=== PATIENT | female | born 1955 | race Two or more races ===

== ENCOUNTER 2020-09-26 16:31 | Outpatient (REF) | payer MEDICARE, SELFPAY ==
--- NOTE | ~2020-09-26 | US_ITS ---
EXAMINATION: US RETROPERITONEAL COMPLETE (RENAL) CLINICAL INFORMATION: Bilateral flank pain, concern for kidney stones. COMPARISON: None TECHNIQUE: Real-time imaging of the kidneys and bladder. FINDINGS: RIGHT KIDNEY: 10.0 x 5.3 x 5.4 cm (SAG x AP x TRV). The kidney is normal in size, contour, and echogenicity. Renal cortical thickness is normal. No calculi or focal parenchymal lesions. No hydronephrosis. LEFT KIDNEY: 10.6 x 4.2 x 5.9 cm (SAG x AP x TRV). The kidney is normal in size, contour, and echogenicity. Renal cortical thickness is normal. No calculi or focal parenchymal lesions. No hydronephrosis. BLADDER: Well distended and normal. Bilateral ureteral jets are demonstrated. Prevoid bladder volume is 141 mL. Postvoid bladder volume is 10.3 mL. US/US retroperitoneal comp IMPRESSION: Unremarkable renal ultrasound. Normal bilateral ureteral jets. Small postvoid residual bladder volume.
== END 2020-09-26 16:32 | disposition home or self-care (01) ==
LOC: HO.US 16:31
PROVIDERS: Visit Provider Internal Medicine
DX: R10.9 Unspecified abdominal pain (principal)
CPT/HCPCS: 76770

== ENCOUNTER 2021-06-19 14:34 | Outpatient (REF) | payer MEDICARE, SELFPAY ==
--- NOTE | ~2021-06-19 | US_ITS ---
EXAMINATION: US RETROPERITONEAL COMPLETE (RENAL) CLINICAL INFORMATION: Left flank pain x2 weeks. Concern for stones. COMPARISON: Renal ultrasound 09/26/2020. TECHNIQUE: Real-time imaging of the kidneys and bladder. FINDINGS: RIGHT KIDNEY: 10.1 x 5.0 x 5.0 cm (SAG x AP x TRV). The kidney is normal in size, contour, and echogenicity. Renal cortical thickness is normal. No calculi or focal parenchymal lesions. No hydronephrosis. LEFT KIDNEY: 9.5 x 4.6 x 4.7 cm (SAG x AP x TRV). The kidney is normal in size, contour, and echogenicity. Renal cortical thickness is normal. No calculi or focal parenchymal lesions. No hydronephrosis. BLADDER: Well distended and normal. Right ureteral jet is demonstrated; left is not. Prevoid bladder volume is 160.6 mL. Postvoid bladder volume is 33.2 mL. US/US retroperitoneal comp IMPRESSION: Unremarkable renal and bladder ultrasound.
== END 2021-06-19 14:35 | disposition home or self-care (01) ==
LOC: HO.US 14:34
PROVIDERS: Visit Provider Nurse Practitioner Primary Care
DX: R07.81 Pleurodynia (principal); R10.9 Unspecified abdominal pain
CPT/HCPCS: 76770

== ENCOUNTER → 2022-04-30 10:22 | Outpatient (REF) | payer OTHER, SELFPAY ==
--- NOTE | 2022-04-30 10:28 | CA_ITS ---
Transthoracic Echocardiogram Patient (Last, First, Middle): Carla Encinas, Gender: Female Date of : 1955 Age: 66 Procedure Date: 04/30/2022 Procedure Type: Transthoracic Echocardiogram Location: OP Height: 157.48 cm Weight: 63.5 kg BSA: 1.64 m2 Heart Rate: bpm BP: 120 / 54 mmHg Hog Trader: TO Referring MD: Neda Núñez MD Applications Programmer: Lucius Rodríguez MD Symptoms: NONRHEUMATIC AORTIC VALVE INSUFFICIENCY Study Quality: Technically Difficult/Contrast ECG Rhythm: Sinus Conclusions: - 1. Normal LV systolic function with grade 2 diastolic dysfunction 2. Mild aortic regurgitation 3. Normal RV systolic pressure 4. No gross pericardial effusion Findings Procedure Information Contrast agent, definity, is being given per protocol without apparent complications. Left Ventricle Normal left ventricular size, thickness, and systolic function. The visually estimated ejection fraction is between 65-70%. Spectral Doppler is indicative of a pseudonormal filling pattern. Elevated filling pressures. E/E prime ratio is >15, consistent with elevated filling pressures. Evidence suggests grade II (moderate) diastolic dysfunction. Right Ventricle Normal right ventricular cavity size and systolic function. Atria The left atrium is likely dilated. Interatrial shunt cannot be excluded. The right atrium is normal in size. Aortic Valve The aortic valve structure and function is likely normal. There is mild calcification of the aortic valve. There is no aortic valve stenosis. There is mild aortic valve regurgitation. Mitral Valve There is mild anterior and posterior mitral leaflet thickening. There is trace mitral valve regurgitation. There is no mitral valve stenosis. Pulmonic Valve The pulmonic valve was not well visualized. Tricuspid Valve Likely normal tricuspid valve structure and function. There is mild tricuspid valve regurgitation. The right ventricular systolic pressure is normal. The right ventricular systolic pressure is 30 mmHg. Normal right atrial pressure. There is no evidence of pulmonary hypertension. Great Vessels All visible segments of the aorta are normal in size. Venous The inferior vena cava is normal in size and collapses greater than 50% with inspiration. Pericardium/Pleural There is no evidence of pericardial effusion. Prior Study Comparison No prior study available for comparison. Measurements 2D Linear Measurements IVSd: 1.05 0.6-0.9/0.6-1.0 cm LVIDd: 3.82 3.9-5.3/4.2-5.9 cm LVIDd Index: 2.33 2.4-3.2/2.2-3.1 cm/m2 LVIDs: 2.53 2.0-3.6 cm LVPWd: 0.73 0.7-1.1 cm LA Diam: 3.70 2.7-3.8/3.0-4.0 cm LAIDs Index: 2.26 1.5-2.3 cm/m2 LV Mass: 124.77 67-162/88-224 g LV Mass Index: 76.08 43-95/49-115 g/m2 LVOT Diam: 2.00 3.0+(-)1.3 cm 2D Systolic Function EF 4C: 66.40 >55% EF 2C: 62.00 >55% EF BiP: 66.00 >55% Mitral Valve MV Pk E: 0.93 MV PK A: 0.64 MV Decel Time: 299.00 E/A: 1.40 E'Lateral: 5.55 E'Medial: 3.48 E/E' Med: 26.70 E/E' Lat: 16.80 PHT: 88.00 MVA PHT: 2.50 Decel Cochran: 3.11 Aortic Valve AoV Pk Juan: 1.09 AoV Mn Juan: 0.72 AoV VTI: 0.27 AoV Pk Grad: 5.00 Aov Mn Grad: 2.00 WINNIE Cont.VTI: 2.66 AI Pk Juan: 4.37 AI Cochran: 2.48 LVOT LVOT Pk Juan: 0.89 LVOT Mn Juan: 0.61 LVOT VTI: 0.23 LVOT Pk Grad: 3.00 LVOT Mn Grad: 2.00 LVOT Diam: 2.00 LVOT Area: 3.14 Diastolic Function MV Pk E: 0.93 MV Pk A: 0.64 E/A: 1.40 E'Medial: 3.48 E/E' Med: 26.70 E' Laterial: 5.55 E/E' Lat: 16.80 Right Ventricle TAPSE (mm): 18.30 TVS' Juan: 8.92 Tricuspid Valve TR Pk Juan: 2.59 TR Pk Grad: 27.00 RA Press: 3.00 RVSP: 30.00 Great Vessels Aorta Sinus of Valsalva: 2.83 2.0-3.[address] Ridge: 2.20 1.7-3.4 cm Ao Asc: 3.00 2.1-3.4 cm Updated in Other Vendor System with Status of Final Lucius Rodríguez MD electronically signed on 04/30/2022 3:58:30 PM with status of Final
== END ==
LOC: HO.CARD 10:22
PROVIDERS: PCP Internal Medicine; Visit Provider Internal Medicine
DX: I35.1 Nonrheumatic aortic (valve) insufficiency (principal)
CPT/HCPCS: 93306; Q9957

== ENCOUNTER 2023-05-11 11:14 | Outpatient (REF) | payer OTHER, SELFPAY ==
--- NOTE | ~2023-05-11 | XR_ITS ---
EXAMINATION: XR KNEE, RIGHT CLINICAL INFORMATION: Knee pain after trauma 2 weeks ago COMPARISON: None available. TECHNIQUE: Four views of the right knee. FINDINGS: Medial soft tissue swelling. Mild medial knee joint narrowing and chondrocalcinosis. Small quadriceps enthesopathy. No fracture, dislocation or joint effusion. Vascular calcifications. Medial surgical clips. XR/XR knee RT 4V IMPRESSION: No acute bony pathology. Degenerative type changes.
[2023-05-11 13:28] LABS: MANUAL DIFF FLAG NO
[2023-05-11 13:41] LABS: Basophils Absolute Auto 0.1 X10*3/uL (0.0-0.2); Eosinophils Absolute Auto 0.6 X10*3/uL (0.0-0.4); Eosinophils Percent Auto 5.1 % (0-4); Hematocrit 34.1 % (37.0-47.0); Hemoglobin 10.7 g/dl (12.0-16.0); Imm Gran Abs Auto 0.04 X10*3/uL (0.00-0.03); Imm Gran Pct Auto 0.3 % (0.0-0.4); Lymphocytes Absolute Auto 2.2 X10*3/uL (1.2-4.9); Lymphocytes Percent Auto 17.8 % (20-40); Mean Corpuscular HGB Conc 31.4 g/dl (31.0-35.0); Mean Corpuscular Hemoglobin 26.1 pg (27.0-33.0); Mean Corpuscular Volume 83.2 fL (80.0-98.0); Monocytes Absolute Auto 0.9 X10*3/uL (0.1-1.2); Monocytes Percent Auto 6.9 % (2-11); Neutrophils Absolute Auto 8.6 x10*3/uL (2.0-8.3); Neutrophils Percent Auto 68.9 % (45-73); Platelet Count 365 X10*3/uL (160-400); White Blood Count 12.4 X10*3/uL (4.8-10.8)
[2023-05-11 14:11] LABS: Alanine Aminotransferase 23 U/L (0-31); Albumin Level 4.2 g/dL (3.5-5.0); Alkaline Phosphatase 69 U/L (39-117); Anion Gap 14 (12-20); Aspartate Amino Transferase 23 U/L (5-31); Bilirubin Total 0.4 mg/dL (0.0-1.0); Blood Urea Nitrogen 15 mg/dL (9-16); Calcium 10.5 mg/dL (8.4-10.2); Carbon Dioxide 27 mmol/L (22-29); Chloride 105 mmol/L (96-108); Estimated Glomerular Filt Rate > 60; Glucose Random 140 mg/dL (60-115); Iron 38 mcg/dL (30-160); Percent Iron Saturation 13 % (15-50); Potassium 4.2 mmol/L (3.3-5.1); Sodium 142 mmol/L (135-145); Total Iron Binding Capacity 297 mcg/dL (228-428); Total Protein 7.9 g/dL (6.5-8.0); Unsaturated Iron Binding 259 ug/dL
[2023-05-11 14:15] LABS: Estimated Average Glucose 166 mg/dL; Hemoglobin A1c % 7.4 % (<6.0)
[2023-05-11 14:30] LABS: Ferritin 24 ng/mL (10-250)
[2023-05-11 15:53] LABS: Adenovirus F 40/41 Not Detected (Not Detect.); Astrovirus Not Detected (Not Detect.); Campylobacter Not Detected (Not Detect.); Cryptosporidium Not Detected (Not Detect.); Cyclospora cayetanensis Not Detected (Not Detect.); E. coli EAEC Not Detected (Not Detect.); E. coli EPEC Not Detected (Not Detect.); E. coli ETEC Not Detected (Not Detect.); E. coli STEC Not Detected (Not Detect.); Entamoeba histolytica Not Detected (Not Detect.); Giardia lamblia Not Detected (Not Detect.); Norovirus GI/GII Not Detected (Not Detect.); Plesiomonas shigelloides Not Detected (Not Detect.); Rotavirus A Not Detected (Not Detect.); Salmonella Not Detected (Not Detect.); Sapovirus Not Detected (Not Detect.); Shigella sp./EIEC Not Detected (Not Detect.); Vibrio Not Detected (Not Detect.); Vibrio Cholerae Not Detected (Not Detect.); Yersinia enterocolitica Not Detected (Not Detect.)
== END 2023-05-11 11:15 | disposition home or self-care (01) ==
LOC: HO.HHCL 11:14
PROVIDERS: Visit Provider Student in an Organized Health Care Education/Training Program
DX: R19.7 Diarrhea, unspecified (principal); M25.561 Pain in right knee; E11.9 Type 2 diabetes mellitus without complications
CPT/HCPCS: 36415; 73564; 80053; 82728; 83036; 83540; 85025; 87507

== ENCOUNTER 2023-06-02 16:01 | Outpatient (REF) | payer OTHER, SELFPAY ==
[2023-06-02 17:56] LABS: Alanine Aminotransferase 16 U/L (0-31); Albumin Level 4.3 g/dL (3.5-5.0); Alkaline Phosphatase 76 U/L (39-117); Anion Gap 16 (12-20); Aspartate Amino Transferase 21 U/L (5-31); Bilirubin Total 0.4 mg/dL (0.0-1.0); Blood Urea Nitrogen 21 mg/dL (9-16); Calcium 10.8 mg/dL (8.4-10.2); Carbon Dioxide 24 mmol/L (22-29); Chloride 104 mmol/L (96-108); Cholesterol 119 mg/dL (<200); Estimated Glomerular Filt Rate > 60; Glucose Random 90 mg/dL (60-115); HDL Cholesterol 36 mg/dL (>40); LDL Cholesterol Calculated 65 mg/dL (<100); Potassium 3.7 mmol/L (3.3-5.1); Sodium 140 mmol/L (135-145); Total Protein 8.2 g/dL (6.5-8.0); Triglycerides 92 mg/dL (<150)
[2023-06-03 04:40] LABS: ~HepC Num1 0.07 S/CO (0.00-0.79); ~Hepatitis C Antibody Nonreactive (Nonreactive)
== END 2023-06-02 16:02 | disposition home or self-care (01) ==
LOC: HO.HHCL 16:01
PROVIDERS: Visit Provider General Practice
DX: N90.4 Leukoplakia of vulva (principal); N89.8 Other specified noninflammatory disorders of vagina; R19.7 Diarrhea, unspecified; Z95.1 Presence of aortocoronary bypass graft; I10 Essential (primary) hypertension; E78.00 Pure hypercholesterolemia, unspecified; E11.9 Type 2 diabetes mellitus without complications
CPT/HCPCS: 36415; 80053; 80061; 81513; 86803

== ENCOUNTER 2023-11-22 12:50 | Outpatient (REF) | payer OTHER, SELFPAY ==
[2023-11-22 16:40] LABS: Alanine Aminotransferase 17 U/L (0-31); Albumin Level 3.9 g/dL (3.5-5.0); Alkaline Phosphatase 78 U/L (39-117); Anion Gap 11 (12-20); Aspartate Amino Transferase 16 U/L (5-31); Bilirubin Total 0.4 mg/dL (0.0-1.0); Blood Urea Nitrogen 16 mg/dL (9-16); Calcium 10.6 mg/dL (8.4-10.2); Carbon Dioxide 29 mmol/L (22-29); Chloride 105 mmol/L (96-108); Estimated Glomerular Filt Rate > 60; Glucose Random 167 mg/dL (60-115); Potassium 3.8 mmol/L (3.3-5.1); Sodium 141 mmol/L (135-145); Total Protein 8.1 g/dL (6.5-8.0)
[2023-11-22 16:44] LABS: Creatinine Urine 106.07 mg/dL; Microalbum/Creatinine Ratio Ur 13.1 ug/mg cr (<30)
== END 2023-11-22 12:51 | disposition home or self-care (01) ==
LOC: HO.HHCL 12:50
PROVIDERS: Visit Provider General Practice
DX: E11.9 Type 2 diabetes mellitus without complications (principal); Z79.4 Long term (current) use of insulin
CPT/HCPCS: 36415; 80053; 82043; 82570

== ENCOUNTER 2023-12-13 15:55 | Outpatient (REF) | payer OTHER, SELFPAY ==
--- NOTE | ~2023-12-13 | XR_ITS ---
EXAMINATION: RIGHT CLAVICLE, RIGHT SHOULDER CLINICAL INFORMATION: Clavicular and shoulder tenderness COMPARISON: None available. TECHNIQUE: 5 views right shoulder, 2 views right clavicle FINDINGS: Degenerative changes are seen in the AC joint as well as at the glenohumeral joint. No acute fracture or dislocation is seen. Old healed right-sided rib fractures are noted involving at least the sixth through eighth right posterior ribs. No acute fractures are seen. Patient status post median sternotomy. The visualized lungs are unremarkable. XR/XR shoulder RT min 2V IMPRESSION: Degenerative changes in the right shoulder and right AC joint. No acute fracture or dislocation.
--- NOTE | ~2023-12-13 | XR_ITS ---
EXAMINATION: RIGHT CLAVICLE, RIGHT SHOULDER CLINICAL INFORMATION: Clavicular and shoulder tenderness COMPARISON: None available. TECHNIQUE: 5 views right shoulder, 2 views right clavicle FINDINGS: Degenerative changes are seen in the AC joint as well as at the glenohumeral joint. No acute fracture or dislocation is seen. Old healed right-sided rib fractures are noted involving at least the sixth through eighth right posterior ribs. No acute fractures are seen. Patient status post median sternotomy. The visualized lungs are unremarkable. XR/XR clavicle RT IMPRESSION: Degenerative changes in the right shoulder and right AC joint. No acute fracture or dislocation.
== END 2023-12-13 15:56 | disposition home or self-care (01) ==
LOC: HO.HHCX 15:55
PROVIDERS: Visit Provider Nurse Practitioner
DX: M25.511 Pain in right shoulder (principal)
CPT/HCPCS: 73000; 73030

== ENCOUNTER 2024-04-14 09:22 | Outpatient (REF) | payer OTHER, SELFPAY ==
--- NOTE | ~2024-04-14 | XR_ITS ---
EXAMINATION: XR KNEE, LEFT CLINICAL INFORMATION: Anterior knee pain after a fall one week ago COMPARISON: None available TECHNIQUE: Four views of the left knee. FINDINGS: No fracture or malalignment. Medial compartment narrowing. No fracture. No joint effusion. Meniscal chondrocalcinosis. Prominent enthesopathy. Vascular calcifications noted. XR/XR knee LT 4V IMPRESSION: No acute osseous abnormality. Degenerative findings as described. Electronically signed by: Feliberto Marshall MD 04/20/2024 09:21 AM EDT
== END 2024-04-14 09:23 | disposition home or self-care (01) ==
LOC: HO.HHCX 09:22
PROVIDERS: Visit Provider Family Medicine
DX: M25.562 Pain in left knee (principal)
CPT/HCPCS: 73564

== ENCOUNTER 2024-08-29 12:02 | Outpatient (REF) | payer OTHER, SELFPAY ==
--- NOTE | ~2024-08-29 | XR_ITS ---
EXAMINATION: XR SHOULDER, RIGHT CLINICAL INFORMATION: R shoulder pain s/p fall 3 months ago COMPARISON: December 13, 2023 TECHNIQUE: AP external rotation, Grashey, scapular Y, and axillary views of the right shoulder. FINDINGS: No acute cortical disruption or malalignment. No lytic or blastic lesions. Callus formation/old healed fractures in the posterior aspect of the ribs right hemithorax, likely sixth and seventh ribs. Sternal wires. Multilevel thoracic spondylosis. XR/XR shoulder RT min 2V IMPRESSION: No acute fracture or dislocation, right shoulder. Old healed rib fractures, right sixth and seventh ribs. Electronically signed by: Luis A Dunn MD 08/29/2024 12:58 PM EST
--- OUTSIDE RECORDS SUMMARY | 2024-08-29 13:59 | XMS_ITS | Continuity of Care Document ---
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 tel:[phone] [place] post hosp visit (chief complaint) Other specified diabetes mellitus with proliferativ e diabetic retinopathy with macular edemaAngina Kuldip-0 1-201 6 No Information [facility], [address], [place], [place], [id number], [place] tel:[phone] [place] No Information Jan-0 1-201 6 Puvilma Doe. [address] [place], [place], [id number]. tel:[phone] [facility], [address], [place], [place], [id number], [place] tel:[phone] [place] Angina December-2 7-201 6 Puffer Brunilda Huynh Beth. [address] [place], [place], [id number]. tel:[phone] [facility], [address], [place], [place], [id number], [place] tel:[phone] [place] Arthropathy, unspecified December-2 2-201 6 Elzbieta Madden. [address] [place] [address], [place], [place], [id number]. tel:[phone] [facility], [address], [place], [place], [id number], [place] tel:[phone] [place] No Information December-2 0-201 6 Kee Doe. [address] [place], [place], [id number]. tel:[phone] OFFICE/OUTPA TIENT VISIT, EST [facility], [address], [place], [place], [id number], [place] tel:[phone] [place] angina (chief complaint) AnginaType 2 diabetes mellitus with diabetic retinopathy with macular edema 0 4-201 6 Roge Stephen. [address] [place] [address], [id number], [place]. tel:[phone] OFFICE/OUTPA TIENT VISIT, [facility] [place], [address], [place], [place], [id number], [place] tel:[phone] [place] Nurse Assessment (chief complaint)ch est pain (chief complaint) Angina Apr-2 0-201 6 No Information [facility], [address], [id number], [place] tel:[phone] [place] Follow Up of DM (chief complaint)Fo llow Up of urine incontinence (chief complaint)na james congestion (chief complaint) DysuriaOther specified urinary incontinence Type 2 diabetes mellitus with diabetic neuropathy, unspecifiedO ther seasonal allergic rhinitis Apr-1 3-201 6 Elzbieta Madden. [address] [facility], [place], [place], [id number]. tel:[phone] [facility], [address] [address], [place], [place], [id number], [place] tel:[phone] [place] Nurse Assessment (chief complaint) Dysuria Apr-0 8- 6 Roge Mitchell. [address] [place] [address], [id number], [place]. tel:[phone] OFFICE/OUTPA TIENT VISIT, [facility] [place], [address] [address], [place], [place], [id number], [place] tel:[phone] [place] redness and pain in left lateral leg (chief complaint)di abetes (chief complaint) Cellulitis of left legType 2 diabetes mellitus with diabetic neuropathy, unspecified Mar-2 3 6 No Information OFFICE/OUTPA TIENT VISIT, [facility] [place], [address] [address], [place], [place], [id number], [place] tel:[phone] [place] f/u diabetes and incontinence (chief complaint) Female stress incontinence Type 2 diabetes mellitus with diabetic neuropathy, unspecified Mar-0 2-201 6 No Information OFFICE/OUTPA TIENT VISIT, [facility] [place], [address], [id number], [place] tel:[phone] [place] semi annual (chief complaint)di abetes (chief complaint)de pression (chief complaint)Ch ronic Conditions (chief complaint) Hyperlipidem ia, unspecifiedB phoebe mass index (BMI) 36.0-36.9, adultLong term (current) use of insulinGastr o-esophageal reflux disease without esophagitisU nspecified cataractOthe r specified urinary incontinence Other specified diabetes mellitus with proliferativ e diabetic retinopathy with macular edemaVitamin D deficiency, unspecifiedO ther specified disorders of bone density and structure, unspecified siteOther amnesiaOsteo arthritis of knee, unspecifiedE ssential (primary) hypertension Coronary artery disease of [place] coronary artery w/ angina pectorisType 2 diabetes mellitus with diabetic retinopathy with macular edema 6 No Information [facility], [address], [place], [place], [id number], [place] tel:[phone] [place] Type 2 diabetes 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 [address] [place], [place], [id number], [place]. tel:[phone] OFFICE/OUTPA TIENT VISIT, EST [facility], [address], [place], [place], [id number], [place] tel:[phone] [place] Pre op Cataract (chief complaint) Type 2 diabetes mellitus with diabetic neuropathy, unspecifiedC ataract in diseases classified elsewhereTyp e 2 diabetes w prolif diabetic rtnop w/o macular edema 6 No Information [facility], [address] [facility], [place], [place], [id number], [place] tel:[phone] [place] No Information 6 Roge Mitchell. [address] [place], [place], [id number], [place]. tel:[phone] [facility], [address], [place], [place], [id number], [place] tel:[phone] [place] No Information 5 Kee Doe. [address] [place], [place], [id number]. tel:[phone] [facility], [address], [place], [place], [id number], [place] tel:[phone] [place] Type 2 diabetes w prolif diabetic rtnop w/o macular edema Nov-3 0 5 Roge Stephen. [address] [place], [place], [id number], [place]. tel:[phone] [facility], [address], [place], [place], [id number], [place] tel:[phone] [place] No Information Nov2 0 5 Roge Stephen. [address] [place], [place], [id number], [place]. tel:[phone] [facility], [address], [place], [place], [id number], [place] tel:[phone] [place] Carpal tunnel syndrome, right upper limb 5 Roge Stephen. [address] [place], [place], [id number], [place]. tel:[phone] [facility], [address], [place], [place], [id number], [place] tel:[phone] [place] No Information 5 Roge Stephen. [address] [place], [place], [id number], [place]. tel:[phone] [facility], [address], [place], [place], [id number], [place] tel:[phone] [place] No Information 1 1 5 No Information [facility], [address], [place], [place], [id number], [place] tel:[phone] [place] No Information Nov0 6 5 Kee Doe. [address] [place], [place], [id number]. tel:[phone] [facility], [address], [place], [place], [id number], [place] tel:[phone] [place] No Information Nov-0 4-201 5 Roge Stephen. [address] [place], [place], [id number], [place]. tel:[phone] [facility], [address], [place], [place], [id number], [place] tel:[phone] [place] No Information Oct-3 0-201 5 Roge Stephen. [address] [place], [place], [id number], [place]. tel:[phone] [facility], [address], [place], [place], [id number], [place] tel:[phone] [place] No Information Oct-2 8-201 5 Roge Stephen. [address] [place], [place], [id number], [place]. tel:[phone] [facility], [address], [place], [place], [id number], [place] tel:[phone] [place] No Information Oct-2 8-201 5 Roge Stephen. [address] [place], [place], [id number], [place]. tel:[phone] HOME VISIT, EST PATIENT [facility], [address], [place], [place], [id number], [place] tel:[phone] [place] HV for preop (chief complaint) Vitreous hemorrhage, right eye Oct-2 0-201 5 Roge Stephen. [address] [place], [place], [id number], [place]. tel:[phone] [facility], [address], [place], [place], [id number], [place] tel:[phone] [place] Vitreous hemorrhage, right eye Oct-1 4-201 5 No Information [facility], [address], [place], [place], [id number], [place] tel:[phone] [place] No Information Oct-1 4-201 5 Roge Stephen. [address] [place], [place], [id number], [place]. tel:[phone] [facility], [address] [facility] [address] [facility], [place], [place], [id number], [place] tel:[phone] [place] No Information Oct-0 9-201 5 No Information [facility], [address], [place], [place], [id number], [place] tel:[phone] [place] No Information Oct-0 7-201 5 Despres Joan. [address], [place], [address]. tel:[phone] OFFICE/OUTPA TIENT VISIT, EST [facility], [address] [facility] [address] [facility], [place], [place], [id number], [place] tel:[phone] [place] post op assess L hand (chief complaint)In continence (chief complaint)Nu rse Assessment (chief complaint) Type 2 diabetes w prolif diabetic rtnop w/o macular edemaCarpal tunnel syndrome, left upper limbEncounte r for general adult medical examination without abnormal findingsArth ropathy, unspecifiedU nspecified urinary incontinence Oct-0 7-201 5 No Information [facility], [address] [facility], [place], [place], [id number], [place] tel:[phone] [place] Type 2 diabetes mellitus with proliferativ e diabetic retinopathy without macular edema Oct-0 6-201 5 Roge Mitchell. [address] [place] [address], [id number], [place]. tel:[phone] [facility], [address] [facility] [address] [facility], [place], [place], [id number], [place] tel:[phone] [place] Nurse Assessment (chief complaint) No Information Oct-0 2-201 5 Kee Doe. [address] [place] [address], [id number]. tel:[phone] [facility], [address] [facility], [place], [place], [id number], [place] tel:[phone] [place] Diabetes with ophthalmic manifestatio ns, type II or unspecified type, not stated as uncontrolled Sep-3 0- 5 No Information [facility], [address], [place], [place], [id number], [place] tel:[phone] [place] Vitamin D deficiency Sep-2 5 Roge Laran. [address] [place] [address], [id number], [place]. tel:[phone] [facility], [address], [place], [place], [id number], [place] tel:[phone] [place] No Information Sep-2 5 No Information OFFICE/OUTPA TIENT VISIT, [facility] [place], [address], [place], [place], [id number], [place] tel:[phone] [place] GOC/MOLST review (chief complaint) Diabetes mellitus with ophthalmic manifestatio ns, type II or unspecified type, not stated as uncontrolled Background diabetic retinopathy Sep-2 5 No Information [facility], [address] [facility], [place], [place], [id number], [place] tel:[phone] [place] Esophageal reflux Sep-1 5 No Information [facility], [address], [place], [place], [id number], [place] tel:[phone] [place] No Information Sep-1 5 Despres Joan. [address] [place], [address]. tel:[phone] OFFICE/OUTPA TIENT VISIT, [facility], [address], [place], [place], [id number], [place] tel:[phone] [place] post enrollment (chief complaint)ch ronic conditions (chief complaint) Carpal tunnel syndromeObes ity, unspecifiedE sophageal refluxPosttr aumatic stress disorderDiab etes mellitus with ophthalmic manifestatio ns, type II or unspecified type, not stated as uncontrolled Background diabetic retinopathyV itamin D deficiencyOt her and unspecified angina pectorisDepr essive disorder, not elsewhere classifiedCo nstipation, unspecifiedI ncontinenceS econdary diabetes mellitus with neurological manifestatio ns, not stated as uncontrolled , or unspecifiedD isorder of bone and cartilage, unspecifiedU nspecified idiopathic peripheral neuropathyCo ronary atherosclero sis of unspecified type of vessel, [place] or graftUnspeci fied essential hypertension Arthropathy, unspecified, site unspecifiedU nspecified cataractMemo ry lossOther tenosynoviti s or hand and wrist Sep-1 6- 5 No Information [facility], [address], [id number], [place] tel:[phone] [place] Secondary diabetes mellitus with neurological manifestatio ns, not stated as uncontrolled , or unspecified Sep-1 0- 5 Roge Mitchell. [address] [place] [address], [id number], [place]. tel:[phone] [facility], [address], [id number], [place] tel:[phone] [place] Diabetes mellitus without mention of complication , type II or unspecified type, not stated as uncontrolled Sep-0 9 5 No Information [facility], [address], [id number], [place] tel:[phone] [place] Diabetes mellitus without mention of complication , type II or unspecified type, not stated as uncontrolled Sep-0 8 5 Roge Mitchell. [address] [place], [place], [id number], [place]. tel:[phone] OFFICE/OUTPA TIENT VISIT, EST [facility], [address], [id number], [place] tel:[phone] [place] Review of potential surgery (chief complaint) Trigger finger Sep-0 2- 5 No Information [facility], [address] [facility] [place] [address], [id number], [place] tel:[phone] [place] Diabetes mellitus without mention of complication , type II or unspecified type, not stated as uncontrolled Cataracts Sep-0 1-201 5 No Information [facility], [address] [address], [place], [place], [id number], [place] tel:[phone] [place] Routine Medical ExamScreenin g examination for pulmonary tuberculosis Diabetes mellitus without mention of complication , type II or unspecified type, not stated as uncontrolled Julian Hinds. [address], [place], [place], [id number]. tel:[phone] [facility], [address], [place], [place], [id number], [place] tel:[phone] [place] Intake visit (chief complaint) No Information No Information Family History Family Member Type Diagnosis Age At Onset No Information Immunizations Vaccine Date Status Comments Influenza, recombinant, injectable, quadrivalent, preservative free Flublok Quad administered Source: New Immuniza tion Record Pneumococcal polysaccharide PPV23 refused Note: Late entry- Wh ile at for clinic appt on 08/12/18, pneumo vaccine was again offered to Carla and she again refused immunization. ; Source: New Immunization Record Influenza, injectable, quadrivalent, preservative free, split virus, 3 years and older, Fluzone Quad Y administered Note: Janel bal orders given by provider Esperanza Frankel NP to administer the high dose flu vaccine. PPT 63yrs old. PPT is aware and agreeable. Teaching provided to report fever, chills, redness or inflammation at the site. ; Source: New Immunization Record Pneumococcal polysaccharide PPV23 refused Source: New Immuniza tion Record Influenza, injectable, trivalent, split virus, preservative free, 3 years and older Afluria [id number] administered Source: New Immu nization Record Zoster administered Note: Sterile d iluent Lot: [id number] Exp: 12/07/17 [facility]: [id number] ; Source: New Immunization Record pneumococcal conjugate vacci ne, 13 valent administered Source: New Immuniza tion Record Tdap administered Source: New Imm unization Record Flu (split) (3 yrs or older) administered Source: Other Provider Influenza, high dose, injectable, split virus, preservative free, Fluzone High-Dose 2018-2019Y pending Source: New Immuniz ation Record Tdap pending Source: New Imm unization Record Payers Payer name Insurance type Covered alliance party ID Lou ng(s) [facility] 16 [id number] [facility] 16 [id number] [facility] 16 [id number] [facility] 16 [id number] [facility] 16 [id number] [facility] 16 [id number] [facility] 16 [id number] [facility] 16 [id number] [facility] 16 [id number] [facility] 16 [id number] Social History Type Description Quantity Date Captured Comments Sex Female Smoking Status No Information Chief Complaint And Reason For Visit No Information Reason For Referral Reason For Referral No Information Plan Of Treatment Date Type Action Status Goal Dental Exam. Due on 019 due Goal Foot exam. Due on due Goal GFR. Due on due Goal Dilated eye exam. Due on Apr due Goal Foot exam. Due on 8 due Goal H&P. Due on due Goal Dilated eye exam. Due on Apr due Goal GFR. Due on due Goal Dental Exam. Due on due Goal GFR. Due on due Goal Foot exam. Due on due Goal Dilated eye exam. Due on Apr due Goal H&P. Due on due Goal Dental Exam. Due on due Goal Dilated eye exam. Due on Apr due Goal GFR. Due on due Goal Foot exam. Due on due Goal H&P. Due on due Goal Dental Exam. Due on due Goal Mammogram (Screening); Bilat eral. Due on due Goal Dilated eye exam. Due on Apr due Goal GFR. Due on due Goal Dental Exam. Due on due Goal Foot exam. Due on due Goal H&P. Due on due Goal Mammogram (Screening); Bilat eral. Due on due Goal GFR. Due on due Goal H&P. Due on due Goal Dilated eye exam. Due on Apr due Goal Dental Exam. Due on due Goal Foot exam. Due on due Goal Mammogram (Screening); Bilat eral. Due on due Goal Foot exam. Due on due Goal GFR. Due on due Goal Dilated eye exam. Due on Apr due Goal H&P. Due on due Goal Dental Exam. Due on due Goal Foot exam. Due on due Goal Dental Exam. Due on due Goal H&P. Due on due Goal GFR. Due on due Goal Dilated eye exam. Due on Apr due Goal Foot exam. Due on due Goal Dental Exam. Due on due Goal GFR. Due on due Goal Dilated eye exam. Due on Apr due Goal H&P. Due on due Goal H&P. Due on due Goal Dilated eye exam. Due on Apr due Goal GFR. Due on due Goal Foot exam. Due on due Goal Dental Exam. Due on due Goal Dilated eye exam. Due on Apr due Goal GFR. Due on due Goal Foot exam. Due on due Goal Dental Exam. Due on due Goal H&P. Due on due Goal H&P. Due on due Goal GFR. Due on due Goal Dilated eye exam. Due on Apr due Goal Foot exam. Due on due Goal Dental Exam. Due on due Goal H&P. Due on due Goal GFR. Due on due Goal Foot exam. Due on due Goal Dilated eye exam. Due on Apr due Goal Dental Exam. Due on due Goal Foot exam. Due on due Goal GFR. Due on due Goal Dilated eye exam. Due on Apr due Goal Dental Exam. Due on due Goal H&P. Due on due Goal Dental Exam. Due on due Goal H&P. Due on due Goal Foot exam. Due on due Goal Influenza vaccine. Due on Oc due Goal GFR. Due on due Goal Dilated eye exam. Due on Apr due Goal Dilated eye exam. Due on Apr due Goal Influenza vaccine. Due on Oc due Goal Foot exam. Due on due Goal H&P. Due on due Goal GFR. Due on due Goal Dental Exam. Due on due Goal Foot exam. Due on due Goal GFR. Due on due Goal Dilated eye exam. Due on Apr due Goal Influenza vaccine. Due on due Goal Dental Exam. Due on due Goal H&P. Due on due Goal Foot exam. Due on due Goal GFR. Due on due Goal Influenza vaccine. Due on Oc due Goal Dilated eye exam. Due on Apr due Goal Dental Exam. Due on due Goal H&P. Due on due Goal Dental Exam. Due on due Goal Foot exam. Due on due Goal H&P. Due on due Goal GFR. Due on due Goal Influenza vaccine. Due on Oc due Goal Dilated eye exam. Due on Apr due Goal Foot exam. Due on due Goal GFR. Due on due Goal Dilated eye exam. Due on Apr due Goal Influenza vaccine. Due on Oc due Goal Dental Exam. Due on due Goal H&P. Due on due Goal GFR. Due on due Goal Influenza vaccine. Due on Oc due Goal Foot exam. Due on due Goal Dilated eye exam. Due on Apr due Goal H&P. Due on due Goal Dental Exam. Due on due Goal Foot exam. Due on due Goal H&P. Due on due Goal Dilated eye exam. Due on Apr due Goal Dental Exam. Due on due Goal Influenza vaccine. Due on Oc due Goal GFR. Due on due Goal Foot exam. Due on due Goal Dilated eye exam. Due on Apr due Goal Influenza vaccine. Due on Oc due Goal GFR. Due on due Goal Dental Exam. Due on due Goal H&P. Due on due Goal Dilated eye exam. Due on Apr due Goal H&P. Due on due Goal Foot exam. Due on due Goal Influenza vaccine. Due on Oc due Goal GFR. Due on due Goal Dental Exam. Due on due Goal Influenza vaccine. Due on Oc due Goal Foot exam. Due on due Goal GFR. Due on due Goal Dental Exam. Due on due Goal Dilated eye exam. Due on Apr due Goal H&P. Due on due Goal Dilated eye exam. Due on Apr due Goal Influenza vaccine. Due on Oc due Goal Foot exam. Due on due Goal GFR. Due on due Goal H&P. Due on due Goal Dental Exam. Due on due Goal GFR. Due on due Goal Foot exam. Due on due Goal Influenza vaccine. Due on Oc due Goal Dilated eye exam. Due on Apr due Goal Dental Exam. Due on due Goal H&P. Due on due Goal Influenza vaccine. Due on Oc due Goal Foot exam. Due on due Goal GFR. Due on due Goal Dental Exam. Due on due Goal Dilated eye exam. Due on Apr due Goal H&P. Due on due Goal GFR. Due on due Goal Dilated eye exam. Due on Apr due Goal Foot exam. Due on 8 due Goal Influenza vaccine. Due on Oc due Goal Dental Exam. Due on due Goal H&P. Due on due Goal Dilated eye exam. Due on Apr due Goal GFR. Due on due Goal Influenza vaccine. Due on Oc due Goal H&P. Due on due Goal Dental Exam. Due on due Goal Foot exam. Due on 8 due Goal GFR. Due on due Goal Dental Exam. Due on due Goal Influenza vaccine. Due on Oc due Goal Dilated eye exam. Due on Apr due Goal H&P. Due on due Goal Mammogram (Screening); Bilat eral. Due on due Goal GFR. Due on due Goal Dilated eye exam. Due on Apr due Goal Dental Exam. Due on due Goal Mammogram (Screening); Bilat eral. Due on due Goal H&P. Due on due Goal H&P. Due on due Goal Mammogram (Screening); Bilat eral. Due on due Goal Dental Exam. Due on due Goal GFR. Due on due Goal Dilated eye exam. Due on Apr due Goal Dilated eye exam. Due on Apr due Goal GFR. Due on due Goal Mammogram (Screening); Bilat eral. Due on due Goal Dental Exam. Due on due Goal GFR. Due on due Goal Mammogram (Screening); Bilat eral. Due on due Goal Dilated eye exam. Due on Apr due Goal Dental Exam. Due on due Goal GFR. Due on due Goal Dental Exam. Due on due Goal Dilated eye exam. Due on Apr due Goal Mammogram (Screening); Bilat eral. Due on due Goal Dilated eye exam. Due on Apr due Goal GFR. Due on due Goal Mammogram (Screening); Bilat eral. Due on due Goal Dental Exam. Due on due Goal GFR. Due on due Goal Dilated eye exam. Due on Apr due Goal Dental Exam. Due on due Goal Urine microalbumin. Due on due Goal Foot exam. Due on 7 due Goal GFR. Due on due Goal Dilated eye exam. Due on Apr due Goal Lipid panel. Due on 016 due Goal Mammogram (Screening); Bilat eral. Due on due Goal H&P. Due on due Goal Dental Exam. Due on due Goal GFR. Due on due Goal Lipid panel. Due on due Goal Dental Exam. Due on due Goal Dilated eye exam. Due on Apr due Goal H&P. Due on due Goal Mammogram (Screening); Bilat eral. Due on due Goal Urine microalbumin. Due on due Goal Dental Exam. Due on due Goal H&P. Due on due Goal Urine microalbumin. Due on due Goal Mammogram (Screening); Bilat eral. Due on due Goal Dilated eye exam. Due on Apr due Goal Lipid panel. Due on due Goal GFR. Due on due Goal Lipid panel. Due on due Goal Dental Exam. Due on due Goal Urine microalbumin. Due on due Goal GFR. Due on due Goal Dilated eye exam. Due on Apr due Goal Mammogram (Screening); Bilat eral. Due on due Goal H&P. Due on due Goal Mammogram (Screening); Bilat eral. Due on due Goal Urine microalbumin. Due on due Goal GFR. Due on due Goal Lipid panel. Due on due Goal Dilated eye exam. Due on Apr due Goal Dental Exam. Due on due Goal H&P. Due on due Goal GFR. Due on due Goal Dental Exam. Due on due Goal Mammogram (Screening); Bilat eral. Due on due Goal Lipid panel. Due on due Goal H&P. Due on due Goal Urine microalbumin. Due on due Goal Dilated eye exam. Due on Apr due Goal Lipid panel. Due on due Goal GFR. Due on due Goal Urine microalbumin. Due on due Goal Dilated eye exam. Due on Apr due Goal H&P. Due on due Goal Dental Exam. Due on due Goal Mammogram (Screening); Bilat eral. Due on due Goal Urine microalbumin. Due on due Goal Dilated eye exam. Due on Apr due Goal GFR. Due on due Goal Lipid panel. Due on due Goal H&P. Due on due Goal Mammogram (Screening); Bilat eral. Due on due Goal Dental Exam. Due on due Goal H&P. Due on due Goal Dental Exam. Due on due Goal Mammogram (Screening); Bilat eral. Due on due Goal Influenza vaccine. Due on due Goal Lipid panel. Due on due Goal Urine microalbumin. Due on N due Goal Dilated eye exam. Due on Apr due Goal GFR. Due on due Goal GFR. Due on due Goal Lipid panel. Due on due Goal Urine microalbumin. Due on due Goal Influenza vaccine. Due on due Goal Dental Exam. Due on due Goal H&P. Due on due Goal Dilated eye exam. Due on Apr due Goal Dental Exam. Due on due Goal Urine microalbumin. Due on due Goal GFR. Due on due Goal Influenza vaccine. Due on due Goal Dilated eye exam. Due on Apr due Goal Lipid panel. Due on due Goal H&P. Due on due Goal Urine microalbumin. Due on due Goal Influenza vaccine. Due on due Goal Dental Exam. Due on due Goal Lipid panel. Due on due Goal Dilated eye exam. Due on Apr due Goal GFR. Due on due Goal H&P. Due on due Goal GFR. Due on due Goal Dilated eye exam. Due on Apr due Goal Urine microalbumin. Due on due Goal Influenza vaccine. Due on due Goal Dental Exam. Due on due Goal H&P. Due on due Goal Lipid panel. Due on due Goal Lipid panel. Due on due Goal H&P. Due on due Goal GFR. Due on due Goal Urine microalbumin. Due on due Goal Dilated eye exam. Due on Apr due Goal Influenza vaccine. Due on due Goal Dental Exam. Due on due Goal Urine microalbumin. Due on due Goal Lipid panel. Due on due Goal Influenza vaccine. Due on due Goal H&P. Due on due Goal Dilated eye exam. Due on Apr due Goal GFR. Due on due Goal Dental Exam. Due on due Goal Dental Exam. Due on due Goal GFR. Due on due Goal Dilated eye exam. Due on Apr due Goal Influenza vaccine. Due on due Goal H&P. Due on due Goal Urine microalbumin. Due on due Goal Urine microalbumin. Due on due Goal GFR. Due on due Goal H&P. Due on due Goal Influenza vaccine. Due on due Goal Dental Exam. Due on due Goal GFR. Due on due Goal Urine microalbumin. Due on due Goal Dental Exam. Due on due Goal Influenza vaccine. Due on due Goal Urine microalbumin. Due on due Goal Dental Exam. Due on due Goal GFR. Due on due Goal GFR. Due on due Goal Dental Exam. Due on due Goal Urine microalbumin. Due on due Goal Dental Exam. Due on due Goal GFR. Due on due Goal Urine microalbumin. Due on due Goal Dental Exam. Due on due Goal GFR. Due on due Goal Urine microalbumin. Due on due Goal Urine microalbumin. Due on due Goal Dental Exam. Due on due Goal GFR. Due on due Goal Dental Exam. Due on due Goal GFR. Due on due Goal Urine microalbumin. Due on due Goal Urine microalbumin. Due on due Goal GFR. Due on due Goal Dental Exam. Due on due Goal GFR. Due on due Goal Dental Exam. Due on due Goal Urine microalbumin. Due on M due Goal GFR. Due on due Goal Urine microalbumin. Due on A due Goal Dental Exam. Due on due Goal GFR. Due on due Goal Urine microalbumin. Due on A due Goal Dental Exam. Due on due Goal Dental Exam. Due on due Goal Urine microalbumin. Due on A due Goal GFR. Due on due Goal Dental Exam. Due on due Goal Urine microalbumin. Due on due Goal GFR. Due on due Goal GFR. Due on due Goal Urine microalbumin. Due on due Goal Dental Exam. Due on due Goal H&P. Due on due Goal GFR. Due on due Goal Urine microalbumin. Due on due Goal Colonoscopy. Due on due Goal Dental Exam. Due on due Goal Urine microalbumin. Due on due Goal GFR. Due on due Goal Dental Exam. Due on due Goal Colonoscopy. Due on due Goal Colonoscopy. Due on due Goal Urine microalbumin. Due on due Goal GFR. Due on due Goal Influenza vaccine. Due on due Goal Colonoscopy. Due on due Goal GFR. Due on due Goal Urine microalbumin. Due on due Goal Influenza vaccine. Due on due Goal Colonoscopy. Due on due Goal Urine microalbumin. Due on due Goal GFR. Due on due Goal Urine microalbumin. Due on due Goal Colonoscopy. Due on due Goal Influenza vaccine. Due on No due Goal GFR. Due on due Goal GFR. Due on due Goal Influenza vaccine. Due on No due Goal Urine microalbumin. Due on due Goal Colonoscopy. Due on due Goal Influenza vaccine. Due on No due Goal Colonoscopy. Due on due Goal GFR. Due on due Goal Urine microalbumin. Due on N due Goal GFR. Due on due Goal Influenza vaccine. Due on No due Goal Colonoscopy. Due on due Goal Urine microalbumin. Due on N due Goal Urine microalbumin. Due on N due Goal Colonoscopy. Due on due Goal GFR. Due on due Goal Mammogram (Screening); Bilat eral. Due on due Goal Influenza vaccine. Due on No due Goal Urine microalbumin. Due on N due Goal Influenza vaccine. Due on No due Goal GFR. Due on due Goal Colonoscopy. Due on due Goal Mammogram (Screening); Bilat eral. Due on due Goal GFR. Due on due Goal Urine microalbumin. Due on N due Goal Mammogram (Screening); Bilat eral. Due on due Goal Influenza vaccine. Due on No due Goal Colonoscopy. Due on due Goal GFR. Due on due Goal Td vaccine. Due on 15 due Goal Urine microalbumin. Due on O due Goal Influenza vaccine. Due on Oc due Goal Mammogram (Screening); Bilat eral. Due on due Goal Colonoscopy. Due on due Goal GFR. Due on due Goal Urine microalbumin. Due on O due Goal Td vaccine. Due on 15 due Goal Colonoscopy. Due on due Goal Influenza vaccine. Due on Oc due Goal Mammogram (Screening); Bilat eral. Due on due Goal Influenza vaccine. Due on Oc due Goal Mammogram (Screening); Bilat eral. Due on due Goal Urine microalbumin. Due on O due Goal Colonoscopy. Due on due Goal GFR. Due on due Goal Urine microalbumin. Due on O due Goal Td vaccine. Due on due Goal Colonoscopy. Due on due Goal GFR. Due on due Goal Mammogram (Screening); Bilat eral. Due on due Goal Influenza vaccine. Due on Oc due Goal GFR. Due on due Goal Colonoscopy. Due on due Goal Mammogram (Screening); Bilat eral. Due on due Goal Td vaccine. Due on due Goal Influenza vaccine. Due on Oc due Goal Urine microalbumin. Due on O due Goal Mammogram (Screening); Bilat eral. Due on due Goal GFR. Due on due Goal Influenza vaccine. Due on Oc due Goal Urine microalbumin. Due on O due Goal Td vaccine. Due on due Goal Colonoscopy. Due on due Goal GFR. Due on due Goal Influenza vaccine. Due on Oc due Goal Td vaccine. Due on due Goal Colonoscopy. Due on due Goal Mammogram (Screening); Bilat eral. Due on due Goal Urine microalbumin. Due on O ct due Goal GFR. Due on due Goal Influenza vaccine. Due on Oc t due Goal Urine microalbumin. Due on O due Goal Td vaccine. Due on due Goal Mammogram (Screening); Bilat eral. Due on due Goal Colonoscopy. Due on due Goal GFR. Due on due Goal Td vaccine. Due on due Goal Influenza vaccine. Due on Oc due Goal Urine microalbumin. Due on O due Goal Colonoscopy. Due on due Goal GFR. Due on due Goal Td vaccine. Due on due Goal Urine microalbumin. Due on O due Goal Influenza vaccine. Due on Oc due Goal Colonoscopy. Due on due Goal Mammogram (Screening); Bilat eral. Due on due Goal Influenza vaccine. Due on Oc due Goal Urine microalbumin. Due on O due Goal Colonoscopy. Due on due Goal Mammogram (Screening); Bilat eral. Due on due Goal GFR. Due on due Goal Td vaccine. Due on due Goal Urine microalbumin. Due on S due Goal GFR. Due on due Goal Foot exam. Due on 6 due Goal Dilated eye exam. Due on Apr due Goal Influenza vaccine. Due on due Goal Colonoscopy. Due on due Goal Td vaccine. Due on due Goal Mammogram (Screening); Bilat eral. Due on due Goal Mammogram (Screening); Bilat eral. Due on due Goal Colonoscopy. Due on due Goal Eye Exam. Due on due Goal Td vaccine. Due on due Goal Influenza vaccine. Due on due Goal Colonoscopy. Due on due Goal Eye Exam. Due on due Goal Influenza vaccine. Due on due Goal Td vaccine. Due on due Goal Mammogram (Screening); Bilat eral. Due on due Goal Colonoscopy. Due on due Goal Eye Exam. Due on due Goal Td vaccine. Due on due Goal Influenza vaccine. Due on due Goal Mammogram (Screening); Bilat eral. Due on due Goal Influenza vaccine. Due on due Goal Colonoscopy. Due on due Goal Mammogram (Screening); Bilat eral. Due on due Goal Eye Exam. Due on due Goal Td vaccine. Due on due Goal Mammogram (Screening); Bilat eral. Due on due Goal Td vaccine. Due on due Goal Eye Exam. Due on due Goal Influenza vaccine. Due on due Goal Colonoscopy. Due on due Goal Influenza vaccine. Due on due Goal Eye Exam. Due on due Goal Colonoscopy. Due on due Goal Mammogram (Screening); Bilat eral. Due on due Goal Td vaccine. Due on due Goal Influenza vaccine. Due on due Goal Td vaccine. Due on due Goal Colonoscopy. Due on due Goal Mammogram (Screening); Bilat eral. Due on due Goal Eye Exam. Due on due Goal Influenza vaccine. Due on due Goal Colonoscopy. Due on due Goal Td vaccine. Due on due Goal Eye Exam. Due on due Goal Mammogram (Screening); Bilat eral. Due on due Goal Influenza vaccine. Due on due Goal Mammogram (Screening); Bilat eral. Due on due Goal Eye Exam. Due on due Goal Colonoscopy. Due on due Goal Td vaccine. Due on due Goal Eye Exam. Due on due Goal Colonoscopy. Due on due Goal Td vaccine. Due on 15 due Goal Mammogram (Screening); Bilat eral. Due on due Goal Influenza vaccine. Due on due Goal Colonoscopy. Due on 015 due Goal Eye Exam. Due on due Goal Td vaccine. Due on 15 due Goal Influenza vaccine. Due on due Goal Mammogram (Screening); Bilat eral. Due on due Referral Referred To: [facility] Ordered: Referrals: Dentistry. [facility]. Follow-up and Treat ordered Referral Ordered: Referrals: Podiatry. Location: [facility]. Evaluate and treat Appointment date/timeframe: 06/14/2019 ordered Referral Ordered: Referrals: [facility]. Evaluate and treat ordered Referral Ordered: Referrals: Location: [facility] Appointment date/timeframe: 06/14/2019 ordered Referral Ordered: Referrals: Genitourology. Location: [facility]. Evaluate and treat Appointment date/timeframe: 05/16/2019 ordered Referral Ordered: MAMMOGRAM, BOTH BREASTS Appointment date/timeframe: 06/07/2019 ordered Referral Ordered: Referrals: Dentistry. Evaluate and treat ordered Referral Ordered: Referrals: Social Work. Consult ordered Referral Referred To: [facility] Ordered: Referrals: Ophthalmology. [facility]. Follow-up and Treat ordered Referral Referred To: Dr. Johnson Ordered: Referrals: Ophthalmology. Dr. Johnson. Follow-up and Treat Appointment date/timeframe: 10/17/2018 ordered Referral Referred To: Dr. Aparicio Ordered: Referrals: Cardiology. Dr. Aparicio. Follow-up and Treat Appointment date/timeframe: 01/18/2019 ordered Referral Referred To: Dr. Johnson Ordered: Referrals: Ophthalmology. Dr. Johnson. Evaluate and treat ordered Referral Ordered: Referrals: Cardiology. Location: [facility]. Follow-up and Treat Appointment date/timeframe: 05/18/2018 ordered Referral Referred To: [facility] Ordered: Referrals: Ophthalmology. [facility]. Follow-up and Treat ordered Referral Ordered: Referrals: Podiatry. Follow-up and Treat ordered Referral Referred To: Cardiac Rehabilitation Ordered: Referrals: Cardiac Rehabilitation. Location: [facility]. Follow-up and Treat ordered Referral Referred To: [facility] Rehabilitation Ordered: Referrals: Cardiac Rehabilitation. Location: [facility]. Evaluate and treat ordered Referral Referred To: [facility] Ordered: Referrals: Vascular Surgery. [facility]. Surgery ordered Referral Ordered: Referrals: Outside Sales Representative. Follow-up and Treat ordered Referral Ordered: Referrals: Cardiology. Location: [facility]. Evaluate and treat Appointment date/timeframe: 02/03/2018 ordered Referral Ordered: CARDIOVASCULAR NUCLEAR EXAM Appointment date/timeframe: 01/24/2018 ordered Referral Referred To: Occupational Therapy Ordered: Referrals: Occupational Therapy. Evaluate and treat ordered Referral Ordered: ECHO EXAM OF HEART Appointment date/timeframe: 01/24/2018 ordered Referral Ordered: Referrals: Genitourology. Evaluate and treat ordered Referral Ordered: Dexa Scan Bone Density Appointment date/timeframe: 12/09/2016 ordered Referral Ordered: MRI NECK SPINE W/O & W/DYE Appointment date/timeframe: 12/01/2016 ordered Referral Ordered: X-RAY EXAM OF NECK SPINE Appointment date/timeframe: within 1 week ordered Referral Ordered: referred to physical therapy cervical radiculopathy soon Appointment date/timeframe: soon ordered Referral Ordered: Referrals: Cardiology. Location: [facility]. Consult Appointment date/timeframe: 1 Week ordered Referral Referred To: dr. isa bustillos [facility] Ordered: Referrals: Ophthalmology. dr. isa bustillos [facility]. Follow-up and Treat Appointment date/timeframe: 10/03/2015 ordered Referral Ordered: ELECTROCARDIOGRAM, COMPLETE ordered Referral Referred To: [facility] - dr. moss Ordered: Referrals: Ophthalmology. [facility] - [facility] moss. Follow-up and Treat Appointment date/timeframe: 07/24/15 ordered Referral Ordered: Referrals: Hand surgery. Surgery ordered Referral Referred To: dr. Moss Ordered: Referrals: Ophthalmology. dr. Moss. [facility] Follow-up and Treat Appointment date/timeframe: 06/07/15 ordered Referral Ordered: MAMMOGRAM, SCREENING Appointment date/timeframe: 1 Month ordered Referral Ordered: referred to Occupational Therapy for treatment 1 Week Appointment date/timeframe: 7 Days ordered Referral Ordered: Referrals: Ophthalmology. Evaluate and treat Appointment date/timeframe: 05/29/15 ordered Referral Referred To: [facility] Ordered: Referrals: Ophthalmology. [facility]. Evaluate and treat Appointment date/timeframe: 05/16/15 ordered Referral Ordered: Referrals: Podiatry. Evaluate and treat Appointment date/timeframe: 1 Month ordered Referral Referred To: [facility] Ordered: Referrals: [facility]hthalmology. [facility] Consult Appointment date/timeframe: 05/02/15 ordered Referral Referred To: dr. johnson Ordered: Referrals: Ophthalmology. dr. johnson. Consult Appointment date/timeframe: 04/23/2015 ordered Unknown Immunization Influenza, high dose, injectable, split virus, preservative free, Fluzone High-Dose ordered Unknown Immunization Tdap ordered History Of Present Illness Encounter Date Complaint History Of Prese nt Illness Office Visit - Skin concern, disenrollment, lab review Carla is following up today for check in prior to disenrolling in the program as of 06/23/19. She recently had repeat labs completed and also returns for review of labs. Ppt is Albanian speaking and visit completed with LIDIA lozano. She will be following with a new PCP at the [facility], new patient visit not yet scheduled. States that her daughter is organizing the appointment and that staff from the [facility] will be coming out to her home. Reviewed that she has adequate supply of her medications in the interim before she initiates care with new PCP office. Labs reviewed. She indicates that she has been having some low blood sugars, also evidenced in her recent lab draw. A1C is elevated, but she can document lower blood sugars on her log. Also reviewed that CBC will need to be followed and she indicates understanding. [CBC noting continued WBC elevation, lymphocytes within normal range, no blasts. Ppt will be disenrolling and obtaining new PCP. Consider repeat exam/labs once she has obtained new PCP. Evaluate for inflammatory process/infection. If no source identified and persisting with leukocytosis, consider flow cytometry for r/o CLL.]Reviewed that she had mammogram scheduled at [facility], appears to have been this month, but states did not get ride. Has DEXA scan scheduled for July - notified her that this order will need to be changed to new provider. They may have their testing done at [facility]. Will have office cancel these appointments now that she will be changing insurance.Also was to have appt and testing with Sherrill Sanchez for Urogyn but states transportation did not pick her up. This will need to be arranged by her new PCP. Reports she was just seen by cardiology - note not yet available. Reports that she has a 1 year follow up. She notes that over the last few days, she has had itchiness and burning on the L side of her lower abdomen near her labia. DENIES fever, CP, SOB, dizziness, falls. Also reporting runny nose with dull headache. Reports no sick contacts. Lives with small children.Exam:Alert and oriented, in NAD, RRR, speaking full sentences, ambulating independently, no SOBsclera nonicteric, conjunctiva not injected no BLE edemaPelvic area - near L groin above pubic bone approximate quarter-sized vesicular lesion, no drainage, surrounding skin intact, no L groin lymphadenopathy; reports that this is the area that is itchy for herPLAN:-Valcyclovir 1 gram PO daily x 7 days for lesion; instructed to not irritate the area, wash hands frequently, states not currently sexually active - reminded to avoid intimate contact while having presence of lesion. Let her know that this is likely viral in origin. She was appreciative of the care and reports understanding of instructions.-Flonase re-ordered for her nasal symptoms, reports that it has worked in the past- Seasonal flu vaccine received in the clinic today-Reviewed that she will need to follow up on her CBC labs with new PCP. Also knows that they will need to reschedule mammogram, DEXA, urogyn.- She is aware that as of tomorrow 06/23/19, she will no longer be covered by this office as PCP and she will have to call [facility] with concerns/urgent care. Called over to the [facility] and she does not yet have a new patient appt and cannot be made until 06/23/19 when her new insurance is activated. Record release form signed to forward medical records to [facility].- reminded to continue to monitor her sugars, eat consistently, have protein with her for snacks, f/u with PCP to make adustments as needed to her regimen Chronic Conditions *See Chronic Conditions HPI Annual Patient is a 63 year old Albanian speaking female who has been enrolled in the [facility] program since 04/23/2015 and is being seen for her annual exam at the clinic. vp present for visit. She was last seen in the clinic on 12/08/18 for post fall visit. She does not come to the [facility] site for activities, only for appointments. Transportation by [employer].There have been no hospitalizations, SNF admission or ER visits in the last six months.FALLS - One documented fall from 12/03/18 where she tripped on the foot rest of her recliner and fell onto her R arm. She experienced bruising but no bleeding concerns (on Brilinta, aspirin). Ambulates independently, uses a cane at times. SOCIAL: She lives by herself but son and daughter live nearby. They take her out of the house for errands and activities. She is otherwise able to walk out to the store nearby to go food shopping. Reports that finances are an issue for her and has limited funds to pay for food. ADVANCED DIRECTIVES: [facility] from 05/15/15 reviewed: CPR, DNI, yes to CPAP, undecided on IV fluids/artificial nutrition/dialysisHCP from 04/11/15 reviewed: HCP gosia Haynes - Leeanna Cho; will review with her if she would like any changes Vision - [facility] Msos [facility]; saw last in December 2018, has had injections for diabetic macular edema, hx DM retinopathy; also needs new rx for eyeglasses - will refer to optometry Dental - has upper and lower dentures; has not seen dental in >1 year; reports issues with irritation at gum line lower denture, which can make it difficult for her to eat - will refer Podiatry - does not follow with podiatry in office; will refer to external podiatry; DM foot exam recommended Mammogram - 11/26/16, no abnormalities; would like to have updated mammogram - to be orderedHearing - reports no issuesColonoscopy - 05/21/2011, repeat 10 years MOCA - 10/18/18 - Albanian version , block drawing, counting backwards from 100, word remembering, abstraction; 04/14/17 - ; only completed up to 4th grade level educationDEXA - last 2012, repeat 2 years recommended, osteopenia; DEXA to be ordered Immunizations - recommend yearly flu vaccine this fall; has refused PNA vaccine but had received one previously; Tdap and zostrix have been received Medications reviewed. Receives medications in multipack from [facility]. Reports that she has had difficulties with receiving her medications on time and that she only has enough pills for tomorrow morning. She states that the [facility] stated that they did not have delivery drivers available. This has been an issue with her at times with difficulty in obtaining her pre-pack medications on time. Diagnoses reviewed. CARDIAC - due to follow up with [facility] around 06/2019. She has not had a return of her angina symptoms which presented as more easily SOBOE when walking up a hill. (Previously she would be unable to make it walking up a hill without having to stop.) She completed cardiac rehab, and was going to use the treadmill in her basement. However, she has not been using it much since reports that there are ants in the basement, and she does not like to be down there. Reports that does stairs multiple times per day in the home, shops for her own groceries including pushing the shopping cart. She walks to the store. Uses 2 pillows at baseline for sleep.She can get dizzy mainly reported in the mornings. She doesn't like drinking tap water due to the taste, and drinks bottled water. However, she has not had money to purchase much bottled water, so states that she doesn't drink enough in general. GI - Reports good appetite. Doesn't need to take miralax all the time for constipation. When she eats more fruits, she will not have issues with constipation. Does not have money by end of month, so is not able to buy fruits and will run into constipation issues near end of month. Reports that had some nausea a few weeks ago but resolved on its own. - Reports significant issues with urinary incontinence at night. She will wake up at night and go to get up and will have large amounts of urine leaking in the short period of time it takes to get to her bathroom. She wears pads, but they can be bulky and rub against her skin, causing burning and itching where the upper portion of the pad touches the skin. She has been using an anti-itch OTC cream with some effect. She did not feel that the premarin helped, but did not use for a particular length of time. Has seen urogyn previously >5 years ago and was recommended for the sling procedure but did not have done. Would like to go back to urogyn for further consultation. She has worked on bladder retraining Q2H voiding, Kegels but not kept up with it consistently. DM - checks her blood sugars 3x/day, forgot to bring in logs but will have them for review at another time; able to manage her own insulin/metformin. Reports no issues with numbness/tingling in feet, wounds on feet. Reminded to check feet frequently. Will refer to outside podiatry - currently cutting her own nails but has thickened toenails, peeling skin. DM foot exam earlier this year indicated decreased vibratory sense bilaterally. Sees retinal specialist for her DM macular edema. PAIN - reports that will get back pain if sitting for long periods, mainly on the L hip/buttock area, but is not consistent and not a significant issue for herDIET - Reports has continued to try to work on her diet. She stays away from sugar and has switched from white bread to dark bread. She does like to have rice, but tries to limit it. Also does better on low Na diet (reports less LE swelling), she has been trying unsalted crackers. Drinks diet cranberry juice, water, no soda. 1 cup coffee/day. post fall rt arm injury 63 year old female seen in the [facility] for a self-reported fall on 12/03/2018. Was encouraged by her Product Grader to come into the clinic to be seen.The ppt was at home in her recliner and was getting up and the foot rest was not all the way down, she tripped over the foot rest and fell onto a coffee table on her right upper arm. No loss of consciousness. Denies any bleeding from the right upper arm. No change in function of the right arm. Annual 63 year old chung le seen for her Semi-Annual Evaluation and review of Chronic Conditions. Mark is present serving as the Albanian speaking buttermilk drier operator. Carla resides independently in the community in [place], [place]. She enrolled with [facility] in April of 2015.In the past 6 months she has not had any ED visits, hospitalizations of reported falls.Cardiac Cath performed 01/2018. Ppt completed [address] Johnson in the past few months. Had a procedure scheduled for 09/12/18-cancelled d/t no transportation. Now scheduled for 10/17/2018-unclear what the procedure is for.Last podiatry visit was 2015- cuts her own nails).Immunizations on file include:Influenza vaccine administered 09/09/2017OCV-13 administered 09/06/2015. Has refused the PPV-23Tdap administered 06/21/2015Zostrix administered 09/11/2015Healthcare proxy completed 03/2015 lists her daughter Itzel Hernandez as her primary healthcare agent and Robinson Cho as her alternate healthcare agent. [place] MOLST document dated 05/15/2015 indicates preferences for Full Code status, CPR,but no intubation. WOuld consider NIPPV. Undecided regarding dialysis, artificial nutrition and hydration.Goals are to continue with her exercise and weight management, glucose control. Follow Up of cardiac rehab 63 ye ar old female seen today in regard to her choice to discontinue her cardiac rehab twice a week. She is here with Beba, Albanian speaking buttermilk drier operator.Ppt began phase II of cardiac rehab 03/04/18 s/p POBA of the mid-graft lesion in the SVG to SAKINA 02/18/18. She was attending twicea week for 36 visits.Ppt reprots that she did not notify the cardiac rehab personel of her decision to stop attending. I aksed if she would do so and mentioned that she may be contacted by the information technology assistant.Manuel reports that the 2 days a week and times are disruptive of her personal schedule. She states that she has a treadmill at home that she can set up.Carla bring sin her blood glucose logs from April, quick look at values. Will have values input into the EMR for more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 to remove remaining stitches on the and to keep bandaids clean and dry with protective covering and hand brace present. Denies much pain but says sometimes she has some at night. She takes Tylenol and that helps. Her daughter has been helping her with some of the duties at home and she is able to fill her insulin machine without problems and with her daughters help. Meals on wheels are arriving and the homemaking help she is getting during the week is working out well. Reviewed an upcoming appointment with Dr. Halista at [facility] for the and Carla's not sure why she is going. Will call their office to get specifics and possibly cancel since Carla agrees. Feels her arthritis is stable at this point and is working with rehab. Nurse Assessment PPT feels she i s able to manage insulin pump on her own post surgery. GOC/MOLST review GOC and MOLST d iscussion today. Carla has heard stories of people on life support and would like to not be intubated. Is ok with use of CPAP, however would like family to decide when to remove mask if she is not improving or if deteriorating. See Adv Dir. chronic conditions 1) Carpal dania wiliam syndrome (onset 05/03/2015; Stable.) 2) Obesity, unspecified (onset 05/09/2015; Stable.) 3) Esophageal reflux (onset 05/03/2015; Controlled.) 4) Posttraumatic stress disorder (onset 05/03/2015; Stable.) 5) Diabetes mellitus with ophthalmic manifestations, type II or unspecified type, not stated as uncontrolled (onset 05/03/2015; Controlled.) 6) Background diabetic retinopathy (onset 05/03/2015; Stable.) 7) Vitamin D deficiency (onset 05/03/2015; Stable.) 8) Other and unspecified angina pectoris (onset 04/19/2015; Stable.) 9) Depressive disorder, not elsewhere classified (onset 04/19/2015; Stable.) 10) Constipation, unspecified (onset 04/19/2015; Controlled.) 11) Incontinence (onset 04/19/2015; Recurrent.) 12) Secondary diabetes mellitus with neurological manifestations, not stated as uncontrolled, or unspecified (onset 04/25/2015; Controlled.) 13) Disorder of bone and cartilage, unspecified (onset 04/24/2015; Stable.) 14) Unspecified idiopathic peripheral neuropathy (onset 04/25/2015; Stable.) 15) Coronary atherosclerosis of unspecified type of vessel, [place] or graft (onset 04/19/2015; Stable.) 16) Diabetes mellitus without mention of complication, type II or unspecified type, not stated as uncontrolled (onset 04/19/2015; Controlled.) 17) Unspecified essential hypertension (onset 04/19/2015; Controlled.) 18) Arthropathy, unspecified, site unspecified (onset 04/19/2015; Stable.) 19) Unspecified cataract (onset 04/19/2015; Stable.) 20) Memory loss (onset 04/19/2015; Stable.) 21) Other tenosynovitis or hand and wrist (onset 05/09/2015; Recurrent.) Pertinent negatives include fatigue and weight loss. post enrollment Carla is seen to day for PEE and preop for trigger finger surgery. She lives in an apartment of 2 floors and a basement. Her grandson lives with her and her dtr comes to help sometimes, brings her food. Was recently prescribed an insulin pump, which dispenses only which she adds units and presses button. Lantus was discontinued and sugars have been better controlled. Rarely go >200. Has not had any recent lows. Has hx of open heart surgery in the 70's. Occasional CP with no radiation or other sx's and goes away with one nitro. Sees Oil Pumper and recently made some medication changes. Also sees a arthritis doctor for b/l knee pain, L>R, feels it will give out sometimes. Sees [facility] for finger trigger 3rd finger, L hand. Surgery to be scheduled. Has some stiffness in R but no trigger issues yet.Initial intake visit note:59 year old female in for intake accompanied by her daughter Itzel. Lives alone [place] [facility] [place], [facility], and has been there for 20 years. Is and has 4 children. Goes out to socialize with sikh group 3 times a week. Had a fall about a month ago from slipping in the tub but has also had other falls. Feels she has balance issues and no ambulatory devices. Daughter calls to check on her sometimes, helps her clean sometimes, and does the shopping. Will call her daily for med reminders but doesn't think she takes her medications correctly. Carla has an insulin pump that she is able to manage on her own with occasional calls from the clinic. No wandering. No longer cooks because forgets what spices to use for the food and also many episodes of burnt rice. Neighbor brings food over sometimes, daughter occasionally, however it was vague and it is not clear how she gets all meals. Has an allergy to sulfa. Last ER visit a few months ago and doesn't remember why. Has reading glasses and dentures. The dentures broke recently and she fixed them with crazy glue. No trouble swallowing or chewing. Uses a pad for incontinence of urine and has a commode. No skin issues. Suffers from chronic pain from arthritis and knees L>R, and also has a cyst on her left hand. Due for surgery on 04/26. Says she hasn't drank or smoked for a long time but does have a history of both. No drug use. Only specialist she has is cardiology and next appointment is 07/10/15 at 2 PM w/Dr. Gusman through [facility].PMH: IDDM (insulin pump uses lispro) and sugars have been in the 120s to 180s. CVA, CAD (had open heart surgery with a stent), hypertension, angina, arthritis, cataracts (no operation yet), depression, short-term memory loss, history of bypass surgery, history of stent placement, urinary incontinence and constipation. Review of potential surgery Acco rding to Carla, surgery on her finger is scheduled for this 04/26/15. Carla does not know what her preoperative instructions are but says she has to be there at 10 am. Says her insulin pump does not give a basal dose. Only gives her a dose when she pushes the button. Gives herself 10 u at breakfast, lunch, dinner. Can modify dose depending on sugar level to be less or slightly more than 10u if needed. Sugars in the am are usually around 130. Understands that if NPO for surgery she would need to hold her insulin. Says her grandson lives with her but is busy with his studies. Would be able to heat something in the microwave. Would be able to wash herself up she believes but would need help with cleaning the house as well as MOW's. Intake visit 59 year old chung ruiz in for intake accompanied by her daughter Itzel. Lives alone in elder housing, [facility], and has been there for 20 years. Is and has 4 children. Goes out to socialize with sikh group 3 times a week. Had a fall about a month ago from slipping in the tub but has also had other falls. Feels she has balance issues and no ambulatory devices. Daughter calls to check on her sometimes, helps her clean sometimes, and does the shopping. Will call her daily for med reminders but doesn't think she takes her medications correctly. Carla has an insulin pump that she is able to manage on her own with occasional calls from the clinic. No wandering. No longer cooks because forgets what spices to use for the food and also many episodes of burnt rice. Neighbor brings food over sometimes, daughter occasionally, however it was vague and it is not clear how she gets all meals. Has an allergy to sulfa. Last ER visit a few months ago and doesn't remember why. Has reading glasses and dentures. The dentures broke recently and she fixed them with crazy glue. No trouble swallowing or chewing. Uses a pad for incontinence of urine and has a commode. No skin issues. Suffers from chronic pain from arthritis and knees L>R, and also has a cyst on her left hand. Due for surgery on 04/26. Says she hasn't drank or smoked for a long time but does have a history of both. No drug use. Only specialist she has is cardiology and next appointment is 07/10/15 at 2 PM w/Dr. Gusman through [facility].PMH: IDDM (insulin pump uses lispro) and sugars have been in the 120s to 180s. CVA, CAD (had open heart surgery with a stent), hypertension, angina, arthritis, cataracts (no operation yet), depression, short-term memory loss, history of bypass surgery, history of stent placement, urinary incontinence and constipation. Functional Status Date Functional Assessmen t No Information Medications Administered Medication Instructions Dosage Effective Dates (start - stop) Status Comments No Drug Therapy Prescribed Instructions Date Instruction Additional Infor reema - Valtrex 1 g PO abdirahman ly x 7 days- see above for plan- instructed to call her new PCP office at [facility] for follow up as needed. Related to Other viral infections of unspecified site only completed up to 4th grade education; MMSE on enrollment was low at 20, no hx consistent with progressive dementia10/12/18 - MOCA // - MOCA Related to Other amnesia 04/15/19 GFR 75, Cr 0 .832/ GFR 93; Cr 0.669/01/07 GFR 93, Cr 0.68Goal BP < 140/90Avoid NSAIDsContinue to follow renal function routinely since most recent GFR slightly lower than previous Related to Chronic kidney disease, stage 2 (mild) Reports no current i ssues with neuropathic symptoms on her feet/legs, but has in the past; occasional cramping at night Has been on gabapentin 300 mg 1 tablet at bedtime since around 2015, initially for cervical symptoms. Has in the past reported burning sensation in feetGoal BP < 140/90 due to DM and CADGoal LDL <70 due to DM and CADGoal A1C <8%, but preferred around 7% and to decrease risk for worsening neuropathy in the future. A1C 04/12/19 - 8.9; 10/17/18 - 7.7; 04/27/18 - 7.3, 11/23/17 - 9.3Recheck A1C in about 3 months Going to follow up with podiatry since she has not followed with them regularly and to obtain DM foot exam; regular foot checks discussed during visit and indicates understandingDoes not want to wear DM shoes, and has been encouraged to in the past. Related to Type 2 diabetes mellitus with diabetic polyneuropathy stable, has used art ificial tears PRN in the past Related to Allergic rhinitis due to pollen BMI continues to be >30Has lost weight since earlier this yearDiet and exercise discussed during visit and indicates understanding. She reports has made dietary changes. Related to Body mass index (BMI) 36.0-36.9, adult Follows with Dr. Efren bowden, had 2 injections earlier in 2019states her vision is better after injections Related to Retinal edema per DEXA 01/2013 with recommendation to repeat 5 years; On Ca Vit DReferrals have been placed for DEXA scans but not yet repeatedRepeat DEXA ordered since she indicates that she will attend the testing Related to Other specified disorders of bone density and structure, unspecified site s/p CABG 1997 (LABOY to LAD, SVG to R PDA, SVG to OM1, SVG to D1)05/2012 - stenting 2 vessel diseasecardiac cath 12/27/15 - s/p PCI SOLANGE to SVG - R PDA, SVG OM2 - severe restenosis, OM2 stent present cardiac cath 02/18/18 after abnormal stress test ordered for exertional dyspnea/angina - 100% ostial occlusion of SVG to D1 (old), 95% lesion midsection of SVG to OM1 graft - POBA completed with good resultsCompleted cardiac rehabFollows with [facility] - last seen in 12/2018 with follow up in 6 monthsReports that her symptoms (worsening SOBOE) have not returned. Has not had to use PRN nitroglycerin. Encouraged continue to work on exercise, diet; does not consistently use her treadmill She continues on Brilinta and aspirin without bleeding concerns. She is aware that aspirin is recommended lifelong unless contraindicated. Per cardiology note, they will consider discontinuing Brilinta (been on since 01/2018) on next visit and switch to low dose xarelto. Goal LDL<70, continue on high dose statin and zetia - updated LDL 03/2019 under excellent control Goal BP <140/90, continue on antihypertensives and antianginal s - amlodipine 2.5 mg daily, isosorbide 120 mg daily, metoprolol XL 200 mg daily. Related to Atherosclerotic heart disease of [place] coronary artery without angina pectoris hx of occasional kne e painReports doing well at this time and will alert SEC care team if worseningEncouraging exercising/ambulation Related to Osteoarthritis of knee, unspecified uses Miralax, otherw isgama tries to increase her intake of fruits with good effect Related to Constipation, unspecified DM retinopathy docum ented since 2011Follows with eye regulary. Has had injections in 2019. Reports eyes have been better after injections.Goal A1C <8%Discussed importance of good glucose control. She has been making dietary changes. Not consistent with her diet but has been working on changes. She stays away from sugary foods in general. Related to Type 2 diabetes mellitus with proliferative diabetic retinopathy with macular edema, bilateral Goal BP <140/90CKD s tage II8/ - GFR 75, Cr 0.83 09/2018 - GFR 93, Cr 0.66; 04/2018 - GFR 93, Cr 0.686/11/2017 echo showing grade III severe diastolic dysfunction with restricted LV filling pattern and increased LA pressure, EF 55-60%Instructed to notify care team if having issues with LE edema, SOBCurrently on beta casey, CCB. HR rate controlled. Related to Hypertensive heart and chronic kidney disease with heart failure and stage 1 through stage 4 chronic kidney disease, or unspecified chronic kidney disease Currently on lantus 40 units daily in morningFormerly was on insulin pump but was unable to manage it safelyShe indicates that she is doing well with current regimen of lantus (able to administer to self) Related to FPC (current) use of insulin Goal LDL < 70 due to DM and CAD04/12/2019 - updated cholesterol panel showing excellent control; Tchol 104, HDL 44, LDL 44, Trig 772/ Tchol 103, LDL 45, HDL 44, Trig 569/01/07 - Tchol 134, LDL 57, HDL 61, Trig 84Continue high dose statin and zetiaEncouraged to work on exercise, diet, reports has tried to change diet Related to Hyperlipidemia, unspecified Hx cataract surgery 09/2015Follows with Dr. Moss for retinopathy, also has been seen by Dr. Johnson Related to Unspecified cataract Continues on omepraz ole 20 mg daily, reports doing wellPreviously was on H2 casey and PPI which was discontinued in 02/2018 by cardiology due to plavix interaction (now on Brilinta) Related to Gastro-esophageal reflux disease without esophagitis REFER to dental for evaluation of denture fitting Related to Presence of dentures -Diagnosed with mixe d urge urinary incontinence in the past. Has been seen by UroGyn and was previously on detrol and oxybutynin, which reportedly did not help. She is aware of Kegels training but did not do consistenly, will do occasionally. Was offered sling in 2010 but did not have the procedure performed-She is now reporting significant urinary incontinence at night where she cannot make it to the bathroom, urine can run down her leg. - REFER to UroGyn- will re-order premarin, was going to order estrace cream but needs to be more frequent and easier for ppt to follow schedule for the premarin cream Related to Other specified urinary incontinence At goal. Related to Puneet babin (primary) hypertension As previously report ed, ppt would consider surgery if needed to improve her pain. Will obtain cervical MRI and possibly refer to neurosurgery pending results. Also consider pain management referral for additional interventions. Ppt is aware of and agreeable to plan. Related to Radiculopathy, cervical region Mood appears somewha t improved. Ppt not interested in counseling or medication management at this time. She believes her mood will greatly improve once her pain is managed. Related to Major depressive disorder, single episode, unspecified Will refer to ophtha lmology for routine f/u. Last visit note somewhat unlegible. It appears she was referred to a different specialist. Will review with PCP prior to referral. Related to Cataract in diseases classified elsewhere Case discussed with Amina Sweet, OT, who reports ppt was very difficult to work with in therapy as she frequently missed visits. After some conversation about options, ppt reports that she would undergo surgery if a target was discovered. I suggested to increase her gabapentin to 300mg bid, but she declined stating she does not want to feel drowsy during the day. Thus, will consider pursuing advanced imaging. Will discuss benefit of MRI with PCP. Related to Radiculopathy, cervical region Well controlled. Related to Pat posadas (primary) hypertension Does not wish for me dication, but is agreeable to counseling. She will need a cypriot speaking counselor. Case discussed with Sam Kennedy, case management social worker, who will speak to ppt today and arrange counseling services. Related to Major depressive disorder, single episode, unspecified now having daily BM on MagOx. Re lated to Constipation, unspecified improved control on Humalog 8 units tid ac/Lantus 40 units qhs.reassess at f/u. Related to Type 2 diabetes mellitus with hyperglycemia d/c Gabapentin.lux nue 10in1 pillow, ice pack qhs.Rx #28 Tramadol 50mg qhs RF2.MASS PAT checked, CS contract signed in Albanian.reassess at f/u. Related to Radiculopathy, cervical region Recent FSBS logs rev iewed dated 05/11/16 - 05/22/16. BS ranging from 70-240 with an average BS of approximately 150. FSBS tends to be higher in the morning. Ppt is currently receiving Lantus 32 units qhs as well as humalog 8 units tid. Last A1c in March 2016 was 9.0%. Will increase Lantus to 40 units and continue with humalog tid. Nursing to inform ppt/caregiver of medication change. Related to FPC (current) use of insulin RUE radicular pain e specially at hs and in AM.10in1 pillow ordered w/OT.C spine XR reordered as it was not done 05/08.Apothecary will put Gabapentin in blister packs today.ppt instructed to call them to tell how many weeks she has left.reassess at f/u. Related to Radiculopathy, cervical region review of BG shows m any readings in range.some AM readings are high and this may be due to neck/arm pain in AM?ppt has c/o constipation, leg cramps, palpitations.she would benefit from Mg supplementation and BG would improve as well.Rx 800mg MagOx qhs.no chg in insulin at this time.reassess at f/u. Related to Type 2 diabetes mellitus with hyperglycemia advised to bring sug ar logs in weekly for insulin adjustment Related to Type 2 diabetes mellitus with diabetic retinopathy with macular edema ck FLP next Wed when fasting. Re lated to Hyperlipidemia, unspecified tenderness at C4-5 o n R w/o RUE weakness.order 10 in 1 pillow.ice to neck qhs prn. Related to Radiculopathy, cervical region will ck w/RPT to get her a tub mat to prevent falls. Related to Osteoarthritis of knee, unspecified will request BSC for her kitchen . Related to Other specified urinary incontinence d/w ppt via interpre ter to reduce starches in diet.this will help with wgt loss.bring in diabetic shoes for RPT to check the fit. Related to Type 2 diabetes mellitus with proliferative diabetic retinopathy without macular edema Ppt advised to use w arm compresses to the area several times daily and to avoid rubbing/touching her eyes. I also advised her to wash her hands frequently. She is aware that blepharitis is self limiting and her symptoms should improve soon. She is aware of and agreeable to plan. She is aware of what to report. Related to Unspecified blepharitis right upper eyelid increase atorvastati n to 80 mgeducated to report any lightheadedness or anginacheck b/ps next 4 SE days Related to Angina check a1csee eye doc tor as scheduledweekly accucheck review until a1c is less than 8 Related to Other specified diabetes mellitus with proliferative diabetic retinopathy with macular edema increase 30 to 32 units/day lant us Related to Type 2 diabetes mellitus with diabetic retinopathy with macular edema cardiology consultat [place]. advised how to deal with exertional angina: to go to [facility] via 911 call if she has 20 minutes of chest discomfort not relieved by 3 ntg Related to Angina resume isosorbide an d aspirin. aspirin given now. advised how to deal with anginaspanish interpretor used Related to Angina local care: soap and water wash, bacitracin, and bandaidcephalexin qid. pt had scalp itch to penicllin so not a contraindication to pcninterpreter used re informed consent Related to Cellulitis of left leg pt asked to bring in sugaar log given her higher use of lantus Related to Type 2 diabetes mellitus with diabetic neuropathy, unspecified increase lantus from 10 to 12 u and humalog from 6 to 8 u with meals.asked to bring in sugar logs next week for further adjustments Related to Type 2 diabetes mellitus with diabetic neuropathy, unspecified refer to OT for pelvic floor exe rcises Related to Female stress incontinence continue risk factor modificaiotn with statin, aspirincontinue beta casey and nitrates Related to Coronary artery disease of [place] coronary artery w/ angina pectoris change from pump to lantus via pen 10 units qevening and 6 units of humalog via pen with mealsaccuchecks qid and return to see me in one week Related to Type 2 diabetes mellitus with diabetic retinopathy with macular edema advised weight loss and exercise Related to Osteoarthritis of knee, unspecified i don't think she morales s a dementia but will have serial MMSEs Related to Other amnesia calcium/vit d therapy Related to Other specified disorders of bone density and structure, unspecified site continue maintenence supplement Related to Vitamin D deficiency, unspecified voiding diary x 4 da ys advised pelvic floor/kegel exercisesreview diary in 1 week Related to Other specified urinary incontinence restart lantus and c ontinue humalog with meals Related to FPC (current) use of insulin encouraged to exerci se more and to lose 5-10 pounds over next few months Related to Body mass index (BMI) 36.0-36.9, adult to skip her mealtime insulin if/when she skips her meal prior to cataract extraction.will get f/u a1c to see if she needs any basal insulin in addition to her usual mealtime humalog Related to Type 2 diabetes mellitus with diabetic neuropathy, unspecified patient seems stable for surgery as planned. Related to Cataract in diseases classified elsewhere Helped Carla with di abetic pump. Reviewed preop and post op instructions. Carla is ready and preop clearance given. Related to Vitreous hemorrhage, right eye TC to [facility] and appnt for is a new pt appnt. Appnt cancelled for now and pt to continue working with our Rehab team. Related to Arthropathy, unspecified Ordered routine mammogram Relate d to Encounter for general adult medical examination without abnormal findings post surgery includi ng trigger finger release surgery. To have stitches out on 06/06. Related to Carpal tunnel syndrome, left upper limb Carla is to have Las er surgery on her R eye tomorrow. Front ofc requesting notes and request on consult reads to notify us of post laser treament needs and of future appnt recommendations. Related to Background diabetic retinopathy Nutrition referral Related to Ob esity, unspecified With renal involveme nt? Awaiting labs and will need to adjust dx if renal. Related to Unspecified essential hypertension Asymptomatic. Monitor Related to Depressive disorder, not elsewhere classified Recent injection R e ye and lazer surgery per Carla. Asked dental front office assistant to call Alex and Dr Moss's ofc (at [facility]) for notes, next appnt. Related to Diabetes mellitus with ophthalmic manifestations, type II or unspecified type, not stated as uncontrolled pt is to have surger y through [facility]. Ok to have surgery and pt is agreable to having it done. Related to Other tenosynovitis or hand and wrist Nursing called micky sorenson and appnt on 04/26 is only f/u appnt, most likely to schedule a surgery. Will update team and let Carla know. Will need to f/u post appnt. PEE to be scheduled. Related to Trigger finger Assessments Type Assessment Date No Information Goals Health Concern Goal Type Priority Status Date Carla is at risk for complications related to diabetes, dependent on insulin as well as oral antidiabetics Carla will not experience any medical complications or hospitalizations, related to diabetes through next review Patient Goal New Carla has Altered skin integrity related to frequent rash to periarea/vaginal secondary to urinary incontinence Skin will remain free from breakdown through next review Patient Goal New Carla is at risk for falls and functional decline related to diabetes, angina, urinary incontinence, hypertension, chronic pain and diabetic retinopathy. Carla will not have any falls and remain living in the community with assistance from family and [facility] through the next review. Patient Goal Complete Patient Care Teams Name Effective Dates (start - stop) Status Members No Information
== END 2024-08-29 12:03 | disposition home or self-care (01) ==
LOC: HO.HHCX 12:02
PROVIDERS: Visit Provider General Practice
DX: M25.511 Pain in right shoulder (principal); G89.29 Other chronic pain
CPT/HCPCS: 73030

== ENCOUNTER → 2024-08-29 12:03 | Outpatient (BNV) | payer OTHER, SELFPAY | PROVIDERS: Visit Provider Radiology Diagnostic Radiology | DX: M25.511 Pain in right shoulder (principal) | CPT/HCPCS: 73030 ==